=== PATIENT | male | born 1965 | race Caucasian/White ===

== ENCOUNTER 2016-12-01 04:59 | Emergency (ER) | payer MEDICARE, MEDICAID ==
[2016-12-01] MEDS ORDERED: Ondansetron 4 MG/2 ML SDV IV ONE (05:04)
[2016-12-01] MEDS ORDERED: Sodium Chloride 0.9% 1,000 ML IV ONE (05:04)
[2016-12-01] MEDS ORDERED: LORazepam 2 MG/ML Syringe IVPUSH ONE (05:06)
[2016-12-01 05:21] VITALS: BP 163/89
--- NOTE | 2016-12-01 05:37 | EDM.PDOC ---
<Steff Robbins - Last Filed: 12/01/16 07:06> ED HPI GENERAL MEDICAL PROBLEM - General Chief Complaint: Respiratory Problem Stated Complaint: IN BY [facility] Time Seen by Provider: 12/01/16 05:14 Source of Information: Reports: Patient, EMS History Limitations: Reports: No Limitations - History of Present Illness INITIAL COMMENTS - FREE TEXT/NARRATIVE: ED via [facility] with c/o SOB and in need of dialysis, states usually take 3 liters off and on Wednesday only took 1.5L off. Is scheduled for dialysis here this am at 9am. Onset: Today, Sudden (041) - Related Data Allergies Allergy/AdvReac Type Severity Reaction Status Date / Time hydralazine HCl Allergy Cannot Verified 12/01/16 05:16 [From Apresoline] Remember apricots Allergy Swelling Uncoded 12/01/16 05:16 onions Allergy Cannot Uncoded 12/01/16 05:16 Remember Home Meds: Home Meds Clopidogrel Bisulfate [Clopidogrel] 1 tab PO DAILY 12/16/15 [History] Furosemide [Furosemide] 1 tab PO DAILY 12/16/15 [History] Metolazone [Zaroxolyn] 1 tab PO DAILY 12/16/15 [History] Pantoprazole Sodium [Pantoprazole Sodium] 1 tab PO BIDAC 12/16/15 [History] Pravastatin Sodium [Pravastatin Sodium] 1 tab PO BEDTIME 12/16/15 [History] glipiZIDE [Glipizide] 1 tab PO QAM 12/16/15 [History] Acetaminophen [Tylenol Extra Strength] 500 mg PO Q6H PRN 12/01/16 [History] Aspirin [Halfprin] 81 mg PO BRK 12/01/16 [History] Benzonatate [Tessalon Perles] 100 mg PO QID PRN 12/01/16 [History] Calcium Acetate [Calcium Acetate] 2 tab PO TIDAC 12/01/16 [History] Carvedilol [Carvedilol] 25 mg PO BID 12/01/16 [History] Gabapentin [Neurontin] 100 mg PO BEDTIME 12/01/16 [History] Lactulose 20 gm PO DAILY PRN 12/01/16 [History] Parenteral Amino Acid 20% No.1 [Prosol] ASDIRECTED 12/01/16 [History] Sevelamer Carbonate [Renvela] 3 tab PO TIDAC 12/01/16 [History] amLODIPine Besylate [Amlodipine Besylate] 10 mg PO DAILY 12/01/16 [History] Past Medical History HEENT History: Reports: Impaired Vision Cardiovascular History: Reports: Hypertension Respiratory History: Reports: SOB Gastrointestinal History: Reports: GERD Genitourinary History: Reports: Dialysis, Peritoneal Musculoskeletal History: Reports: Fracture Endocrine/Metabolic History: Reports: Diabetes, Type II Oncologic (Cancer) History: Reports: Other (See Below) Other Oncologic History: stomach Social & Family History - Tobacco Use Smoking Status *Q: Unknown Ever Smoked Years of Tobacco use: 30 Packs/Tins Daily: 0.2 Used Tobacco, but Quit: No Second Hand Smoke Exposure: Yes - Caffeine Use Caffeine Use: Reports: Coffee - Alcohol Use Days Per Week of Alcohol Use: 2 - Recreational Drug Use Recreational Drug Use: No Drug Use in Last 12 Months: Yes Recreational Drug Type: Reports: Marijuana/Hashish Recreational Drug Use Frequency: Patient Refuses To Answer - Living Situation & Occupation Living situation: Reports: Single, with Family Occupation: Disabled ED ROS GENERAL - Review of Systems Review Of Systems: See Below Constitutional: Reports: No Symptoms HEENT: Reports: No Symptoms Respiratory: Reports: Shortness of Breath, Cough (dry forced) Cardiovascular: Reports: Dyspnea on Exertion. Denies: Chest Pain GI/Abdominal: Reports: No Symptoms Skin: Reports: No Symptoms Neurological: Reports: No Symptoms Psychiatric: Reports: Agitation ED EXAM, GENERAL - Physical Exam Exam: See Below Exam Limited By: Uncooperative General Appearance: Alert, Moderate Distress, Thin Eye Exam: Bilateral Eye: EOMI Ears: Normal External Exam, Normal TMs Nose: Normal Inspection Throat/Mouth: Normal Inspection. No: Normal Teeth Head: Atraumatic, Normocephalic Neck: Normal Inspection, Full Range of Motion Respiratory/Chest: Rhonchi, Prolonged Expiration Cardiovascular: Regular Rate, Rhythm, Tachycardia GI/Abdominal: Normal Bowel Sounds, Soft Back Exam: Normal Inspection Extremities: Normal Inspection, Normal Range of Motion, Pedal Edema Neurological: Alert, Oriented, Normal Cognition Psychiatric: Other (uncooperative agitated agressive) Skin Exam: Warm, Dry, Cool Course - Vital Signs Last Recorded V/S: Last Vital Signs Temp 36.6 C 12/01/16 05:16 Pulse 105 H 12/01/16 05:16 Resp 24 H 12/01/16 05:16 BP 163/89 H 12/01/16 05:16 Pulse Ox 82 L 12/01/16 05:16 - Orders/Labs/Meds Orders: Active Orders 24 hr Category Date Time Status CXR [Chest 1V Frontal] [CR] Urgent Exams 12/01/16 05:05 Taken CULTURE BLOOD [BC] Stat Lab 12/01/16 05:20 Received Labs: Laboratory Tests 12/01/16 12/01/16 12/01/16 Range/Units 05:20 05:20 05:20 WBC 19.1 H (5.0-10.0) 10^3/uL RBC 3.45 L (4.6-6.2) 10^6/uL Hgb 11.6 L (14.0-18.0) g/dL Hct 35.1 L (40.0-54.0) % MCV 101.7 H (80-100) fL MCH 33.6 (27.0-34.0) pg MCHC 33.0 (33.0-35.0) g/dL Plt Count 252 (150-450) 10^3/uL Neut % (Auto) 78.5 H (42.2-75.2) % Lymph % (Auto) 10.5 L (20.5-50.1) % [place] % (Auto) 8.8 H (2-8) % Eos % (Auto) 1.7 (1.0-3.0) % Baso % (Auto) 0.5 (0.0-1.0) % Add Manual Diff Yes Neutrophils % (Manual) 73 % Lymphocytes % (Manual) 13 % Monocytes % (Manual) 11 % Eosinophils % (Manual) 3 % PT 9.8 (9.0-12.0) SEC INR 1.0 (0.9-1.2) Sodium 137 (135-145) mmol/L Potassium 4.8 (3.6-5.0) mmol/L Chloride 94 L (101-111) mmol/L Carbon Dioxide 23.0 (21.0-31.0) mmol/L Anion Gap 24.8 BUN 42 H (7-18) mg/dL Creatinine 8.7 H (0.6-1.3) mg/dL Est Cr Clr Drug Dosing 6.91 mL/min Estimated GFR (MDRD) 7 BUN/Creatinine Ratio 4.82 Glucose 188 H (74-105) mg/dL Lactic Acid (0.5-2.2) mmol/L Calcium 9.3 (8.4-10.2) mg/dl Total Bilirubin 0.6 (0.2-1.0) mg/dL AST 16 (10-42) IU/L ALT 10 (10-60) IU/L Alkaline Phosphatase 72 (42-121) IU/L Troponin I 0.04 H* (0.00-0.02) ng/ml B-Natriuretic Peptide 2220 H (0-100) pg/ml Total Protein 7.7 (6.7-8.2) g/dl Albumin 4.2 (3.2-5.5) g/dl Globulin 3.5 Albumin/Globulin Ratio 1.20 Amylase 92 (28-100) U/L Lipase 27 (22-51) U/L Ethyl Alcohol < 5 mg/dL // Range/Units 05:20 WBC (5.0-10.0) 10^3/uL RBC (4.6-6.2) 10^6/uL Hgb (14.0-18.0) g/dL Hct (40.0-54.0) % MCV (80-100) fL MCH (27.0-34.0) pg MCHC (33.0-35.0) g/dL Plt Count (150-450) 10^3/uL Neut % (Auto) (42.2-75.2) % Lymph % (Auto) (20.5-50.1) % [place] % (Auto) (2-8) % Eos % (Auto) (1.0-3.0) % Baso % (Auto) (0.0-1.0) % Add Manual Diff Neutrophils % (Manual) % Lymphocytes % (Manual) % Monocytes % (Manual) % Eosinophils % (Manual) % PT (9.0-12.0) SEC INR (0.9-1.2) Sodium (135-145) mmol/L Potassium (3.6-5.0) mmol/L Chloride (101-111) mmol/L Carbon Dioxide (21.0-31.0) mmol/L Anion Gap BUN (7-18) mg/dL Creatinine (0.6-1.3) mg/dL Est Cr Clr Drug Dosing mL/min Estimated GFR (MDRD) BUN/Creatinine Ratio Glucose (74-105) mg/dL Lactic Acid 2.3 H (0.5-2.2) mmol/L Calcium (8.4-10.2) mg/dl Total Bilirubin (0.2-1.0) mg/dL AST (10-42) IU/L ALT (10-60) IU/L Alkaline Phosphatase (42-121) IU/L Troponin I (0.00-0.02) ng/ml B-Natriuretic Peptide (0-100) pg/ml Total Protein (6.7-8.2) g/dl Albumin (3.2-5.5) g/dl Globulin Albumin/Globulin Ratio Amylase (28-100) U/L Lipase (22-51) U/L Ethyl Alcohol mg/dL Meds: Medications Discontinued Medications Generic Name Dose Route Start Last Admin Trade Name Freq PRN Reason Stop Dose Admin Sodium Chloride 1,000 mls @ 999 mls/hr 12/01/16 05:04 Normal Saline IV 12/01/16 06:04 .BOLUS ONE Lorazepam 1 mg 12/01/16 05:06 Ativan IVPUSH 12/01/16 05:07 ONETIME ONE Ondansetron HCl 4 mg 12/01/16 05:04 Zofran IV 12/01/16 05:05 ONETIME ONE Departure - Departure Disposition: Home, Self-Care 01 Clinical Impression: Shortness of breath, Chronic kidney disease - Discharge Information Instructions: Shortness of Breath, [id number], Chronic Kidney Disease, Easy- to-Read Forms: ED Department Discharge Care Plan Goals: The patient was advised of the examination and lab results. The patient was encouraged to stay in the ED until his dialysis appointment (at 0845). The patient said that he was not going to sit around for another hour. The patient wants to have coffee, a cigarette and food. If the patient has any additional symptoms or concerns, the patient should follow-up with his primary care facility or return to the emergency department. <El Zhao - Last Filed: 12/01/16 07:52> Course - Re-Assessments/Exams Free Text/Narrative Re-Assessment/Exam: 12/01/16 07:20 Patient care was taken over at shift change. Since the patient refused IV, blood gasses and removed his oxygen during stay, the patient was discharged to go to dialysis. Departure - Departure Time of Disposition: 07:39 Condition: Poor
[2016-12-01 05:50] LABS: CHLORIDE,CL 94 mmol/L (101-111); SODIUM,NA 137 mmol/L (135-145)
== END 2016-12-01 07:55 | disposition home or self-care (01) ==
LOC: DL.ED 04:59
DX: I12.9 Hypertensive chronic kidney disease with stage 1 through stage 4 chronic kidney disease, or unspecified chronic kidney disease (principal); N18.9 Chronic kidney disease, unspecified; H54.7 Unspecified visual loss; K21.9 Gastro-esophageal reflux disease without esophagitis; E11.22 Type 2 diabetes mellitus with diabetic chronic kidney disease; Z91.018 Allergy to other foods; Z88.8 Allergy status to other drugs, medicaments and biological substances; Z79.82 Long term (current) use of aspirin; Z79.899 Other long term (current) drug therapy
CPT/HCPCS: 36415; 71010; 80053; 82150; 83605; 83690; 83880; 84484; 85025; 85610; 87040; 99285; G0480

== ENCOUNTER 2016-12-15 04:01 | Emergency (ER) | payer MEDICARE, MEDICAID ==
[2016-12-15] MEDS ORDERED: Metolazone 2.5 MG Tab PO ONE (04:53)
[2016-12-15] MEDS ORDERED: Furosemide 80 MG Tab PO ONE (04:54)
--- NOTE | 2016-12-15 06:03 | EDM.PDOC ---
<Steff Robbins El - Last Filed: 12/15/16 05:40> ED HPI GENERAL MEDICAL PROBLEM - General Chief Complaint: Respiratory Problem Stated Complaint: AMBULANCE Time Seen by Provider: 12/15/16 04:10 Source of Information: Reports: Patient, EMS History Limitations: Reports: No Limitations - History of Present Illness INITIAL COMMENTS - FREE TEXT/NARRATIVE: ED via [place] [facility] with c/o difficulty breathing, states "too much fluid" and needs dialysis. EMS reported initial sats 65% on room air. Last dialysis 3 days ago Denies consuming more fluid than is allowed. No complaints of pain. Improves with: Reports: Other (oxygen) Upper Back Pain Score (Numeric/FACES): 9 - Related Data Allergies Allergy/AdvReac Type Severity Reaction Status Date / Time hydralazine HCl Allergy Cannot Verified 12/15/16 04:10 [From Apresoline] Remember apricots Allergy Swelling Uncoded 12/15/16 04:10 onions Allergy Cannot Uncoded 12/15/16 04:10 Remember Home Meds: Home Meds Clopidogrel Bisulfate [Clopidogrel] 1 tab PO DAILY 12/16/15 [History] Furosemide [Furosemide] 1 tab PO DAILY 12/16/15 [History] Metolazone [Zaroxolyn] 1 tab PO DAILY 12/16/15 [History] Pantoprazole Sodium [Pantoprazole Sodium] 1 tab PO BIDAC 12/16/15 [History] Pravastatin Sodium [Pravastatin Sodium] 1 tab PO BEDTIME 12/16/15 [History] glipiZIDE [Glipizide] 1 tab PO QAM 12/16/15 [History] Acetaminophen [Tylenol Extra Strength] 500 mg PO Q6H PRN 12/01/16 [History] Aspirin [Halfprin] 81 mg PO BRK 12/01/16 [History] Benzonatate [Tessalon Perles] 100 mg PO QID PRN 12/01/16 [History] Calcium Acetate [Calcium Acetate] 2 tab PO TIDAC 12/01/16 [History] Carvedilol [Carvedilol] 25 mg PO BID 12/01/16 [History] Gabapentin [Neurontin] 100 mg PO BEDTIME 12/01/16 [History] Lactulose 20 gm PO DAILY PRN 12/01/16 [History] Parenteral Amino Acid 20% No.1 [Prosol] ASDIRECTED 12/01/16 [History] Sevelamer Carbonate [Renvela] 3 tab PO TIDAC 12/01/16 [History] amLODIPine Besylate [Amlodipine Besylate] 10 mg PO DAILY 12/01/16 [History] Past Medical History HEENT History: Reports: Impaired Vision Cardiovascular History: Reports: Hypertension Respiratory History: Reports: SOB Gastrointestinal History: Reports: GERD Genitourinary History: Reports: Dialysis, Peritoneal Musculoskeletal History: Reports: Fracture Endocrine/Metabolic History: Reports: Diabetes, Type II Oncologic (Cancer) History: Reports: Other (See Below) Other Oncologic History: stomach Social & Family History - Tobacco Use Smoking Status *Q: Current Every Day Smoker Years of Tobacco use: 10 Packs/Tins Daily: 0.5 Used Tobacco, but Quit: No Second Hand Smoke Exposure: Yes - Caffeine Use Caffeine Use: Reports: Coffee - Alcohol Use Days Per Week of Alcohol Use: 2 - Recreational Drug Use Recreational Drug Use: Yes Drug Use in Last 12 Months: Yes Recreational Drug Type: Reports: Marijuana/Hashish Recreational Drug Use Frequency: Patient Refuses To Answer - Living Situation & Occupation Living situation: Reports: Single, with Family Occupation: Disabled ED ROS GENERAL - Review of Systems Review Of Systems: See Below Constitutional: Reports: No Symptoms HEENT: Reports: No Symptoms Respiratory: Reports: Shortness of Breath, Cough Cardiovascular: Reports: Dyspnea on Exertion, Edema. Denies: Chest Pain GI/Abdominal: Reports: No Symptoms Musculoskeletal: Reports: No Symptoms Skin: Reports: No Symptoms Neurological: Reports: No Symptoms ED EXAM, GENERAL - Physical Exam Exam: See Below Exam Limited By: No Limitations General Appearance: Alert, Moderate Distress Ears: Normal External Exam, Normal TMs Nose: Normal Inspection Throat/Mouth: Other (poor dentation) Head: Atraumatic, Normocephalic Neck: Normal Inspection Respiratory/Chest: Decreased Breath Sounds (bilateral bases). No: Rhonchi, Wheezing Cardiovascular: Normal Peripheral Pulses, Regular Rate, Rhythm GI/Abdominal: Normal Bowel Sounds Extremities: Normal Range of Motion. No: No Pedal Edema (1-2+ bilateral.) Neurological: Alert, Oriented, Normal Cognition Psychiatric: Normal Affect Skin Exam: Warm, Dry, Intact, Normal Color, No Rash Course - Vital Signs Last Recorded V/S: Last Vital Signs Temp 37.1 C 12/15/16 08:00 Pulse 84 08/01/17 08:00 Resp 22 H 12/15/16 08:00 BP 165/89 H 12/15/16 08:00 Pulse Ox 98 12/15/16 08:00 - Orders/Labs/Meds Labs: Laboratory Tests 12/15/16 12/15/16 12/15/16 Range/Units 04:48 04:48 08:11 WBC 18.3 H (5.0-10.0) 10^3/uL RBC 3.55 L (4.6-6.2) 10^6/uL Hgb 11.6 L (14.0-18.0) g/dL Hct 36.1 L (40.0-54.0) % MCV 101.7 H (80-100) fL MCH 32.7 (27.0-34.0) pg MCHC 32.1 L (33.0-35.0) g/dL Plt Count 257 (150-450) 10^3/uL Neut % (Auto) 80.4 H (42.2-75.2) % Lymph % (Auto) 9.2 L (20.5-50.1) % [place] % (Auto) 8.4 H (2-8) % Eos % (Auto) 1.5 (1.0-3.0) % Baso % (Auto) 0.5 (0.0-1.0) % Add Manual Diff Yes Neutrophils % (Manual) 82 % Lymphocytes % (Manual) 12 % Monocytes % (Manual) 6 % Sodium 140 (135-145) mmol/L Potassium 4.5 (3.6-5.0) mmol/L Chloride 95 L (101-111) mmol/L Carbon Dioxide 25.0 (21.0-31.0) mmol/L Anion Gap 24.5 BUN 38 H (7-18) mg/dL Creatinine 9.1 H (0.6-1.3) mg/dL Est Cr Clr Drug Dosing 6.16 mL/min Estimated GFR (MDRD) 6 BUN/Creatinine Ratio 4.17 Glucose 175 H (74-105) mg/dL POC Glucose 132 H (70-105) mg/dl Calcium 9.4 (8.4-10.2) mg/dl Total Bilirubin 0.8 (0.2-1.0) mg/dL AST 17 (10-42) IU/L ALT 10 (10-60) IU/L Alkaline Phosphatase 66 (42-121) IU/L B-Natriuretic Peptide 3770 H (0-100) pg/ml Total Protein 7.9 (6.7-8.2) g/dl Albumin 4.2 (3.2-5.5) g/dl Globulin 3.7 Albumin/Globulin Ratio 1.14 Meds: Medications Discontinued Medications Generic Name Dose Route Start Last Admin Trade Name Audrey PRN Reason Stop Dose Admin Furosemide 80 mg 12/15/16 04:54 12/15/16 05:10 Lasix PO 12/15/16 04:55 80 mg ONETIME ONE Administration Metolazone 5 mg 12/15/16 04:53 12/15/16 05:10 Zaroxolyn PO 12/15/16 04:54 5 mg ONETIME ONE Administration - Radiology Interpretation Free Text/Narrative:: CXR negative, - Re-Assessments/Exams Free Text/Narrative Re-Assessment/Exam: 12/15/16 06:48 Sats improved, Patient poor compliance with keeping oxygen on . Awaiting dialysis. Appointment for 9 am today. Departure - Departure Disposition: Home, Self-Care 01 Clinical Impression: ESRD (end stage renal disease) on dialysis, Shortness of breath Congestive heart failure Qualifiers: Congestive heart failure type: unspecified congestive heart failure type Congestive heart failure chronicity: chronic Qualified Code(s): I50.9 - Heart failure, unspecified Chronic pain Qualifiers: Chronic pain type: chronic pain syndrome Qualified Code(s): G89.4 - Chronic pain syndrome - Discharge Information Instructions: Heart Failure, [id number], Chronic Pain Forms: ED Department Discharge Additional Instructions: Go to dialysis at 9:00AM as scheduled. Follow up with your doctor for medication and pain management. <Manpreet Cao - Last Filed: 12/15/16 08:42> ED HPI GENERAL MEDICAL PROBLEM - General Source of Information: Reports: Old Records, Provider (Steff PARK), RN, RN Notes Reviewed - History of Present Illness INITIAL COMMENTS - FREE TEXT/NARRATIVE: Pt on extended stay ER by Steff PARK at 0700HR shift change with fluid overload and SOB with dialysis pending at 0900HRS this morning. Steff allowed the pt to stay on extended stay ER until his scheduled dialysis as the pt's Hx indicates that he is not reliable to go home at this hour and return for dialysis, and he needs the dialysis to remove excess fluid and relieve his Sx's. *Nursing staff reports that the pt has been very rude and verbally abusive to staff and to his adolescent son during this encounter. Pt has demanded "pain medication" and is angry that he has not been given pain medicine. Pt's pain complaint has been that of chronic back pain, while his ER presenting complaint was shortness of breath with low oxygen saturations. I agree with the PA's decision to not treat the pt with opiate drugs when his oxygen saturations have already been low. Onset: Today ED EXAM, GENERAL - Physical Exam Exam Limited By: Other (angry, verbally abusive to staff) Departure - Departure Time of Disposition: 08:50 Condition: Poor
[2016-12-15 08:26] VITALS: BP 165/89
== END 2016-12-15 08:45 | disposition home or self-care (01) ==
LOC: DL.ED 04:01
DX: I13.2 Hypertensive heart and chronic kidney disease with heart failure and with stage 5 chronic kidney disease, or end stage renal disease (principal); N18.6 End stage renal disease; I50.9 Heart failure, unspecified; G89.4 Chronic pain syndrome; E11.22 Type 2 diabetes mellitus with diabetic chronic kidney disease; F17.210 Nicotine dependence, cigarettes, uncomplicated; K21.9 Gastro-esophageal reflux disease without esophagitis; Z99.2 Dependence on renal dialysis; Z88.8 Allergy status to other drugs, medicaments and biological substances; Z91.018 Allergy to other foods; Z79.02 Long term (current) use of antithrombotics/antiplatelets; Z79.84 Long term (current) use of oral hypoglycemic drugs; Z79.82 Long term (current) use of aspirin; Z79.899 Other long term (current) drug therapy
CPT/HCPCS: 36415; 71010; 80053; 82962; 83880; 85025; 99285; A9270; 99282

== ENCOUNTER 2016-12-22 07:21 | Emergency (ER) | payer MEDICARE, MEDICAID ==
[2016-12-22] MEDS ORDERED: Sodium Chloride 0.9% 10 ML Syringe FLUSH PRN (07:32)
--- NOTE | 2016-12-22 07:32 | EDM.PDOC ---
ED HPI GENERAL MEDICAL PROBLEM - General Chief Complaint: Cardiovascular Problem Stated Complaint: BY AMBULANCE Time Seen by Provider: 12/22/16 07:32 Source of Information: Reports: Patient, EMS, Family, Old Records, RN, RN Notes Reviewed History Limitations: Reports: No Limitations - History of Present Illness INITIAL COMMENTS - FREE TEXT/NARRATIVE: Arrives by ambulance with c/o onset of productive cough last night with yellow- brownish sputum with blood streaks. Pt reports feeling "fluid overloaded" and also reports chest pressure. He states he has been soaked with sweat several times, but doesn't know if he had a fever or not. Onset Date: 12/21/16 Duration: Constant, Getting Worse Location: Reports: Chest Quality: Reports: Pressure Severity: Severe Improves with: Reports: None Worsens with: Reports: None Associated Symptoms: Reports: No Other Symptoms - Related Data Allergies Allergy/AdvReac Type Severity Reaction Status Date / Time hydralazine HCl Allergy Cannot Verified 12/15/16 04:10 [From Apresoline] Remember apricots Allergy Swelling Uncoded 12/15/16 04:10 onions Allergy Cannot Uncoded 12/15/16 04:10 Remember Home Meds: Home Meds Clopidogrel Bisulfate [Clopidogrel] 1 tab PO DAILY 12/16/15 [History] Furosemide [Furosemide] 1 tab PO DAILY 12/16/15 [History] Metolazone [Zaroxolyn] 1 tab PO DAILY 12/16/15 [History] Pantoprazole Sodium [Pantoprazole Sodium] 1 tab PO BIDAC 12/16/15 [History] Pravastatin Sodium [Pravastatin Sodium] 1 tab PO BEDTIME 12/16/15 [History] glipiZIDE [Glipizide] 1 tab PO QAM 12/16/15 [History] Acetaminophen [Tylenol Extra Strength] 500 mg PO Q6H PRN 12/01/16 [History] Aspirin [Halfprin] 81 mg PO BRK 12/01/16 [History] Benzonatate [Tessalon Perles] 100 mg PO QID PRN 12/01/16 [History] Calcium Acetate [Calcium Acetate] 2 tab PO TIDAC 12/01/16 [History] Carvedilol [Carvedilol] 25 mg PO BID 12/01/16 [History] Gabapentin [Neurontin] 100 mg PO BEDTIME 12/01/16 [History] Lactulose 20 gm PO DAILY PRN 12/01/16 [History] Parenteral Amino Acid 20% No.1 [Prosol] ASDIRECTED 12/01/16 [History] Sevelamer Carbonate [Renvela] 3 tab PO TIDAC 12/01/16 [History] amLODIPine Besylate [Amlodipine Besylate] 10 mg PO DAILY 12/01/16 [History] Past Medical History HEENT History: Reports: Impaired Vision Cardiovascular History: Reports: Hypertension Respiratory History: Reports: SOB Gastrointestinal History: Reports: GERD Genitourinary History: Reports: Dialysis, Peritoneal Musculoskeletal History: Reports: Fracture Endocrine/Metabolic History: Reports: Diabetes, Type II Oncologic (Cancer) History: Reports: Other (See Below) Other Oncologic History: stomach Social & Family History - Family History Family Medical History: Noncontributory - Tobacco Use Smoking Status *Q: Current Every Day Smoker Years of Tobacco use: 10 Packs/Tins Daily: 0.5 Used Tobacco, but Quit: No Second Hand Smoke Exposure: Yes - Caffeine Use Caffeine Use: Reports: Coffee - Alcohol Use Days Per Week of Alcohol Use: 2 - Recreational Drug Use Recreational Drug Use: Yes Drug Use in Last 12 Months: Yes Recreational Drug Type: Reports: Marijuana/Hashish Recreational Drug Use Frequency: Patient Refuses To Answer - Living Situation & Occupation Living situation: Reports: Single, with Family Occupation: Disabled ED ROS GENERAL - Review of Systems Review Of Systems: ROS reveals no pertinent complaints other than HPI. ED EXAM, GENERAL - Physical Exam Exam: See Below Exam Limited By: No Limitations General Appearance: Alert, Anxious, Mild Distress, Thin Eye Exam: Bilateral Eye: Normal Inspection Ears: Hearing Grossly Normal Nose: No Blood, Nasal Drainage (mild, clear) Throat/Mouth: Normal Oropharynx, Normal Voice, No Airway Compromise Head: Atraumatic, Normocephalic Neck: Normal Inspection, Supple, Non-Tender, Full Range of Motion. No: Lymphadenopathy (L), Lymphadenopathy (R) Respiratory/Chest: Decreased Breath Sounds, Crackles, Rales, Rhonchi, Wheezing Cardiovascular: Regular Rate, Rhythm, Tachycardia GI/Abdominal: Normal Bowel Sounds, Soft, Non-Tender, No Distention Back Exam: Normal Inspection Extremities: Normal Range of Motion, Non-Tender, Pedal Edema Neurological: Alert, Oriented, CN II-XII Intact, Normal Cognition, No Motor/ Sensory Deficits Psychiatric: Anxious Skin Exam: Diaphoretic EKG INTERPRETATION EKG Date: 12/22/16 Time: 07:58 Rhythm: Other (Sinus tach) Rate (Beats/Min): 112 [place]: Normal P-Wave: Present QRS: Other (LVH with IVCD) ST-T: Normal QT: Normal Comparison: No Change Course - Vital Signs Last Recorded V/S: Last Vital Signs Temp 36.6 C 12/22/16 09:17 Pulse 91 12/22/16 09:17 Resp 24 H 12/22/16 09:17 BP 158/103 H 12/22/16 09:17 Pulse Ox 92 L 12/22/16 09:17 - Orders/Labs/Meds Orders: Active Orders 24 hr Category Date Time Status EKG 12 Lead [EKG Documentation Completion] [] STAT Care 12/22/16 07:33 Active Peripheral IV Care [RC] . DIRECTED Care 12/22/16 07:33 Active RT Aerosol Therapy [RC] ASDIRECTED Care 12/22/16 07:34 Active CULTURE BLOOD [BC] Stat Lab 12/22/16 08:25 Ordered CULTURE BLOOD [BC] Stat Lab 12/22/16 08:25 Ordered CULTURE SPUTUM + SMEAR [RM] Stat Lab 12/22/16 08:30 Received Sodium Chloride 0.9% [Saline Flush] Med 12/22/16 07:32 Active 10 ml FLUSH ASDIRECTED PRN Blood Culture x2 Reflex Set [OM.PC] Stat Oth 12/22/16 08:25 Ordered Peripheral IV Insertion Adult [OM.PC] Stat Oth 12/22/16 07:33 Ordered Medication Orders Sodium Chloride (Saline Flush) 10 ml FLUSH ASDIRECTED PRN PRN Reason: Keep Vein Open Last Admin: 12/22/16 07:59 Dose: 10 ml Labs: Laboratory Tests 12/22/16 12/22/16 12/22/16 Range/Units 07:50 07:50 07:50 WBC 18.2 H (5.0-10.0) 10^3/uL RBC 3.57 L (4.6-6.2) 10^6/uL Hgb 11.5 L (14.0-18.0) g/dL Hct 37.1 L (40.0-54.0) % MCV 103.9 H (80-100) fL MCH 32.2 (27.0-34.0) pg MCHC 31.0 L (33.0-35.0) g/dL Plt Count 286 (150-450) 10^3/uL Neut % (Auto) 70.5 (42.2-75.2) % Lymph % (Auto) 15.7 L (20.5-50.1) % [place] % (Auto) 11.7 H (2-8) % Eos % (Auto) 1.7 (1.0-3.0) % Baso % (Auto) 0.4 (0.0-1.0) % Add Manual Diff Yes Neutrophils % (Manual) 70 % Band Neutrophils % 3 % Lymphocytes % (Manual) 15 % Monocytes % (Manual) 11 % Eosinophils % (Manual) 1 % Anisocytosis 1+ slight PT 9.9 (9.0-12.0) SEC INR 1.0 (0.9-1.2) APTT 24.8 (22.0-34.0) SEC Sodium 141 (135-145) mmol/L Potassium 4.4 (3.6-5.0) mmol/L Chloride 98 L (101-111) mmol/L Carbon Dioxide 23.0 (21.0-31.0) mmol/L Anion Gap 24.4 BUN 40 H (7-18) mg/dL Creatinine 9.3 H (0.6-1.3) mg/dL Est Cr Clr Drug Dosing 5.91 mL/min Estimated GFR (MDRD) 6 BUN/Creatinine Ratio 4.30 Glucose 193 H (74-105) mg/dL Lactic Acid (0.5-2.2) mmol/L Calcium 8.8 (8.4-10.2) mg/dl Total Bilirubin 0.6 (0.2-1.0) mg/dL AST 18 (10-42) IU/L ALT 11 (10-60) IU/L Alkaline Phosphatase 80 (42-121) IU/L Creatine Kinase (26-174) IU/L Creatine Kinase Index (0-2.4) % CK-MB (CK-2) (0.4-4.7) ng/mL Troponin I 0.05 H* (0.00-0.02) ng/ml B-Natriuretic Peptide 2340 H (0-100) pg/ml Total Protein 7.6 (6.7-8.2) g/dl Albumin 3.9 (3.2-5.5) g/dl Globulin 3.7 Albumin/Globulin Ratio 1.05 12/22/16 12/22/16 Range/Units 07:50 07:50 WBC (5.0-10.0) 10^3/uL RBC (4.6-6.2) 10^6/uL Hgb (14.0-18.0) g/dL Hct (40.0-54.0) % MCV (80-100) fL MCH (27.0-34.0) pg MCHC (33.0-35.0) g/dL Plt Count (150-450) 10^3/uL Neut % (Auto) (42.2-75.2) % Lymph % (Auto) (20.5-50.1) % [place] % (Auto) (2-8) % Eos % (Auto) (1.0-3.0) % Baso % (Auto) (0.0-1.0) % Add Manual Diff Neutrophils % (Manual) % Band Neutrophils % % Lymphocytes % (Manual) % Monocytes % (Manual) % Eosinophils % (Manual) % Anisocytosis PT (9.0-12.0) SEC INR (0.9-1.2) APTT (22.0-34.0) SEC Sodium (135-145) mmol/L Potassium (3.6-5.0) mmol/L Chloride (101-111) mmol/L Carbon Dioxide (21.0-31.0) mmol/L Anion Gap BUN (7-18) mg/dL Creatinine (0.6-1.3) mg/dL Est Cr Clr Drug Dosing mL/min Estimated GFR (MDRD) BUN/Creatinine Ratio Glucose (74-105) mg/dL Lactic Acid 2.5 H (0.5-2.2) mmol/L Calcium (8.4-10.2) mg/dl Total Bilirubin (0.2-1.0) mg/dL AST (10-42) IU/L ALT (10-60) IU/L Alkaline Phosphatase (42-121) IU/L Creatine Kinase 72 (26-174) IU/L Creatine Kinase Index 8.5 H (0-2.4) % CK-MB (CK-2) 6.10 H (0.4-4.7) ng/mL Troponin I (0.00-0.02) ng/ml B-Natriuretic Peptide (0-100) pg/ml Total Protein (6.7-8.2) g/dl Albumin (3.2-5.5) g/dl Globulin Albumin/Globulin Ratio Meds: Medications Generic Name Dose Route Start Last Admin Trade Name Freq PRN Reason Stop Dose Admin Sodium Chloride 10 ml 12/22/16 07:32 12/22/16 07:59 Saline Flush FLUSH 10 ml ASDIRECTED PRN Administration Keep Vein Open Discontinued Medications Generic Name Dose Route Start Last Admin Trade Name Freq PRN Reason Stop Dose Admin Albuterol 2.5 mg 12/22/16 07:34 12/22/16 08:04 Proventil Neb Soln NEB 12/22/16 07:35 2.5 mg ONETIME ONE Administration Aspirin 324 mg 12/22/16 07:44 12/22/16 07:56 Aspirin PO 12/22/16 07:45 324 mg ONETIME ONE Administration Furosemide 40 mg 12/22/16 07:45 12/22/16 08:02 Lasix IVPUSH 12/22/16 07:46 40 mg NOW ONE Administration Piperacillin Sod/Tazobactam 100 mls @ 200 mls/hr 12/22/16 08:25 12/22/16 08: 43 Sod 3.375 gm/ Sodium Chloride IV 12/22/16 08:54 200 mls/hr ONETIME ONE Administration Nitroglycerin 1 gm 12/22/16 07:44 12/22/16 07:59 Nitro-Bid 2% TOP 12/22/16 07:45 1 gm ONETIME ONE Administration - Radiology Interpretation Free Text/Narrative:: CXR: increased pulm. vasc. congestion, with RLL infiltrate, see Rad. report. Departure - Departure Time of Disposition: 09:41 Disposition: Home, Self-Care 01 Condition: Serious Clinical Impression: ESRD (end stage renal disease) on dialysis, Shortness of breath Congestive heart failure Qualifiers: Congestive heart failure type: unspecified congestive heart failure type Congestive heart failure chronicity: chronic Qualified Code(s): I50.9 - Heart failure, unspecified Pneumonia Qualifiers: Pneumonia type: due to unspecified organism Laterality: right Lung location: lower lobe of lung Qualified Code(s): J18.1 - Lobar pneumonia, unspecified organism Forms: ED Department Discharge, Interfacility Transfer EMTALA - My Orders Last 24 Hours: My Active Orders 12/22/16 07:32 Sodium Chloride 0.9% [Saline Flush] 10 ml FLUSH ASDIRECTED PRN 12/22/16 07:33 EKG 12 Lead [EKG Documentation Completion] [RC] STAT Peripheral IV Care [RC] . DIRECTED Peripheral IV Insertion Adult [OM.PC] Stat 12/22/16 07:34 RT Aerosol Therapy [RC] ASDIRECTED 12/22/16 08:25 CULTURE BLOOD [BC] Stat CULTURE BLOOD [BC] Stat Blood Culture x2 Reflex Set [OM.PC] Stat 12/22/16 08:30 CULTURE SPUTUM + SMEAR [RM] Stat - Assessment/Plan Last 24 Hours: My Active Orders 12/22/16 07:32 Sodium Chloride 0.9% [Saline Flush] 10 ml FLUSH ASDIRECTED PRN 12/22/16 07:33 EKG 12 Lead [EKG Documentation Completion] [RC] STAT Peripheral IV Care [RC] . DIRECTED Peripheral IV Insertion Adult [OM.PC] Stat 12/22/16 07:34 RT Aerosol Therapy [RC] ASDIRECTED 12/22/16 08:25 CULTURE BLOOD [BC] Stat CULTURE BLOOD [BC] Stat Blood Culture x2 Reflex Set [OM.PC] Stat 12/22/16 08:30 CULTURE SPUTUM + SMEAR [RM] Stat
[2016-12-22] MEDS ORDERED: Albuterol 0.083% 2.5 MG/3 ML Neb Soln NEB ONE (07:34)
[2016-12-22] MEDS ORDERED: Aspirin 81 MG Tab.Chew PO ONE (07:44)
[2016-12-22] MEDS ORDERED: Nitroglycerin 2% Oint 1 GM UD Packet TOP ONE (07:44)
[2016-12-22] MEDS ORDERED: Furosemide 40 MG/4 ML VIAL IVPUSH ONE (07:45)
[2016-12-22] MEDS ORDERED: Piperacillin/Tazobactam 3.375 GM in Sodium Chloride 0.9% 100 ML IV ONE (08:25)
--- NOTE | 2016-12-22 08:46 | CR ---
Clinical history: 51-year-old dialysis patient with chest pain. Interpretation: Chronic pulmonary venous congestion (cephalization) and small dependent new subpulmo audra pleural effusions. Dense new consolidation with air bronchograms right middle and lower lobe since 15 December 2016 exam m ay represent atypical pulmonary edema however underlying pneumonic consolidation probable. Clinical? No lung mass or other focal lobar infiltrates. CONCLUSION: Abnormal. (See above)
[2016-12-22 09:07] VITALS: BP 158/103
--- NOTE | 2016-12-23 10:39 | EKG ---
12/22/2016- SAMANTHA STEVENS - EKG per my reading shows sinus rhythm with tachycardia at a rate of [address] changes and LVH. [facility] /[id number]
== END 2016-12-22 09:45 ==
LOC: DL.ED 07:21
DX: I13.2 Hypertensive heart and chronic kidney disease with heart failure and with stage 5 chronic kidney disease, or end stage renal disease (principal); I50.9 Heart failure, unspecified; N18.6 End stage renal disease; J18.9 Pneumonia, unspecified organism; H54.7 Unspecified visual loss; K21.9 Gastro-esophageal reflux disease without esophagitis; E11.22 Type 2 diabetes mellitus with diabetic chronic kidney disease; Z91.018 Allergy to other foods; Z79.899 Other long term (current) drug therapy; Z79.82 Long term (current) use of aspirin
CPT/HCPCS: 36415; 71010; 80053; 82550; 82553; 83605; 83880; 84484; 85025; 85610; 85730; 87040; 87070; 87205; 93005; 93010; 94640; 96365; 96375; 99285; A9270; J1940; J2543; J7050; J7620; 99284

== ENCOUNTER 2017-01-05 08:39 | Emergency (ER) | payer MEDICARE, MEDICAID ==
[2017-01-05] MEDS ORDERED: Albuterol/Ipratropium 3.0-0.5 MG/3 ML Neb Soln NEB ONE (08:42)
--- NOTE | 2017-01-05 08:54 | EDM.PDOC ---
ED HPI GENERAL MEDICAL PROBLEM - General Stated Complaint: IN BY [facility] Time Seen by Provider: 01/05/17 08:47 Source of Information: Reports: Patient, EMS History Limitations: Reports: No Limitations - History of Present Illness INITIAL COMMENTS - FREE TEXT/NARRATIVE: This 51 yo male patient reports to the ED with increased shortness of breath. The patient reports he has been coughing up blood and had nausea/vomiting. EMS placed the patient on CPAP while enroute to the ED from [place]. The patient is supposed to be in dialysis at 0900 this morning. Onset: Gradual Duration: Day(s):, Constant, Getting Worse Location: Reports: Chest Quality: Reports: Pressure, Sharp Severity: Severe Improves with: Reports: Other (CPAP (started by [facility])) Worsens with: Reports: None Associated Symptoms: Reports: cough w sputum, Nausea/Vomiting, Shortness of Breath Treatments MANAGEMENT TRAINEE: Reports: Other Medication(s) Mid-Sternal Chest Pain Score (Numeric/FACES): 4 - Related Data Allergies Allergy/AdvReac Type Severity Reaction Status Date / Time hydralazine HCl Allergy Cannot Verified 12/15/16 04:10 [From Apresoline] Remember apricots Allergy Swelling Uncoded 12/15/16 04:10 onions Allergy Cannot Uncoded 12/15/16 04:10 Remember Home Meds: Home Meds Clopidogrel Bisulfate [Clopidogrel] 1 tab PO DAILY 12/16/15 [History] Furosemide [Furosemide] 1 tab PO DAILY 12/16/15 [History] Metolazone [Zaroxolyn] 1 tab PO DAILY 12/16/15 [History] Pantoprazole Sodium [Pantoprazole Sodium] 1 tab PO BIDAC 12/16/15 [History] Pravastatin Sodium [Pravastatin Sodium] 1 tab PO BEDTIME 12/16/15 [History] glipiZIDE [Glipizide] 1 tab PO QAM 12/16/15 [History] Acetaminophen [Tylenol Extra Strength] 500 mg PO Q6H PRN 12/01/16 [History] Aspirin [Halfprin] 81 mg PO BRK 12/01/16 [History] Benzonatate [Tessalon Perles] 100 mg PO QID PRN 12/01/16 [History] Calcium Acetate [Calcium Acetate] 2 tab PO TIDAC 12/01/16 [History] Carvedilol [Carvedilol] 25 mg PO BID 12/01/16 [History] Gabapentin [Neurontin] 100 mg PO BEDTIME 12/01/16 [History] Lactulose 20 gm PO DAILY PRN 12/01/16 [History] Parenteral Amino Acid 20% No.1 [Prosol] ASDIRECTED 12/01/16 [History] Sevelamer Carbonate [Renvela] 3 tab PO TIDAC 12/01/16 [History] amLODIPine Besylate [Amlodipine Besylate] 10 mg PO DAILY 12/01/16 [History] Past Medical History HEENT History: Reports: Impaired Vision Cardiovascular History: Reports: Hypertension Respiratory History: Reports: SOB Gastrointestinal History: Reports: GERD Genitourinary History: Reports: Dialysis, Peritoneal Musculoskeletal History: Reports: Fracture Endocrine/Metabolic History: Reports: Diabetes, Type II Oncologic (Cancer) History: Reports: Other (See Below) Other Oncologic History: stomach Social & Family History - Family History Family Medical History: Noncontributory - Tobacco Use Smoking Status *Q: Current Every Day Smoker Years of Tobacco use: 10 Packs/Tins Daily: 0.5 Used Tobacco, but Quit: No Second Hand Smoke Exposure: Yes - Caffeine Use Caffeine Use: Reports: Coffee - Alcohol Use Days Per Week of Alcohol Use: 2 - Recreational Drug Use Recreational Drug Use: Yes Drug Use in Last 12 Months: Yes Recreational Drug Type: Reports: Marijuana/Hashish Recreational Drug Use Frequency: Patient Refuses To Answer - Living Situation & Occupation Living situation: Reports: Single, with Family Occupation: Disabled ED ROS GENERAL - Review of Systems Review Of Systems: ROS reveals no pertinent complaints other than HPI. ED EXAM, GENERAL - Physical Exam Exam: See Below Exam Limited By: No Limitations General Appearance: Alert, WD/WN, Anxious, Moderate Distress, Thin Eye Exam: Bilateral Eye: EOMI, Normal Inspection, PERRL Ears: Normal External Exam, Normal Canal, Hearing Grossly Normal, Normal TMs Nose: Normal Inspection, Normal Mucosa, No Blood Throat/Mouth: Normal Inspection, Normal Lips, Normal Teeth, Normal Gums, Normal Oropharynx, Normal Voice, No Airway Compromise Head: Atraumatic, Normocephalic Neck: Normal Inspection, Supple, Non-Tender, Full Range of Motion Respiratory/Chest: Respiratory Distress, Decreased Breath Sounds, Rhonchi, Wheezing Cardiovascular: Normal Peripheral Pulses, Regular Rate, Rhythm, No Edema, No Gallop, No JVD, No Murmur, No Rub GI/Abdominal: Normal Bowel Sounds, Soft, Non-Tender, No Organomegaly, No Distention, No Abnormal Bruit, No Mass (Male) Exam: Deferred Rectal (Males) Exam: Deferred Back Exam: Normal Inspection, Full Range of Motion, NT Extremities: Normal Inspection, Normal Range of Motion, Non-Tender, Normal Capillary Refill, No Pedal Edema Neurological: Alert, Oriented, CN II-XII Intact, Normal Cognition, Normal Gait, Normal Reflexes, No Motor/Sensory Deficits Psychiatric: Normal Affect, Normal Mood Skin Exam: Warm, Dry, Intact, Normal Color, No Rash Lymphatic: No Adenopathy Course - Vital Signs Last Recorded V/S: Last Vital Signs Temp 36.3 C 01/05/17 08:40 Pulse 100 01/05/17 09:05 Resp 30 H 01/05/17 08:40 BP 176/108 H 01/05/17 08:40 Pulse Ox 100 01/05/17 08:42 - Orders/Labs/Meds Orders: Active Orders 24 hr Category Date Time Status EKG Documentation Completion [RC] URGENT Care 01/05/17 08:46 Active RT Aerosol Therapy [RC] ASDIRECTED Care 01/05/17 08:42 Active CULTURE BLOOD [BC] Stat Lab 01/05/17 08:57 Received CULTURE BLOOD [BC] Stat Lab 01/05/17 09:06 Results DRUG SCREEN URINE BIORAD [URCHEM] Stat Lab 01/05/17 08:44 Uncollected UA W/MICROSCOPIC [URIN] Stat Lab 01/05/17 08:43 Uncollected Vancomycin 500 mg Med 01/05/17 10:24 Ordered Sodium Chloride 0.9% [Normal Saline] 100 ml IV ONETIME Blood Culture x2 Reflex Set [OM.PC] Stat Oth 01/05/17 08:43 Ordered Medication Orders Vancomycin HCl 500 mg/ Sodium (Chloride) 100 mls @ 100 mls/hr IV ONETIME ONE Stop: 01/05/17 11:23 Labs: Laboratory Tests 01/05/17 01/05/17 01/05/17 Range/Units 08:57 09:06 09:06 WBC 17.2 H (5.0-10.0) 10^3/uL RBC 3.39 L (4.6-6.2) 10^6/uL Hgb 10.7 L (14.0-18.0) g/dL Hct 33.9 L (40.0-54.0) % MCV 100.0 (80-100) fL MCH 31.6 (27.0-34.0) pg MCHC 31.6 L (33.0-35.0) g/dL Plt Count 240 (150-450) 10^3/uL Neut % (Auto) 83.1 H (42.2-75.2) % Lymph % (Auto) 7.6 L (20.5-50.1) % [place] % (Auto) 7.6 (2-8) % Eos % (Auto) 1.1 (1.0-3.0) % Baso % (Auto) 0.6 (0.0-1.0) % Add Manual Diff Yes Neutrophils % (Manual) 83 % Band Neutrophils % 2 % Lymphocytes % (Manual) 11 % Monocytes % (Manual) 3 % Eosinophils % (Manual) 1 % Sodium 136 (135-145) mmol/L Potassium 5.7 H (3.6-5.0) mmol/L Chloride 94 L (101-111) mmol/L Carbon Dioxide 22.0 (21.0-31.0) mmol/L Anion Gap 25.7 BUN 58 H (7-18) mg/dL Creatinine 9.0 H (0.6-1.3) mg/dL Est Cr Clr Drug Dosing TNP Estimated GFR (MDRD) 6 BUN/Creatinine Ratio 6.44 Glucose 232 H (74-105) mg/dL Lactic Acid 2.3 H (0.5-2.2) mmol/L Calcium 9.1 (8.4-10.2) mg/dl Magnesium 2.3 (1.8-2.5) mg/dL Total Bilirubin 0.8 (0.2-1.0) mg/dL AST 31 (10-42) IU/L ALT 16 (10-60) IU/L Alkaline Phosphatase 83 (42-121) IU/L Troponin I 0.04 H* (0.00-0.02) ng/ml B-Natriuretic Peptide 2400 H (0-100) pg/ml Total Protein 7.0 (6.7-8.2) g/dl Albumin 3.7 (3.2-5.5) g/dl Globulin 3.3 Albumin/Globulin Ratio 1.12 Ethyl Alcohol < 5 mg/dL Meds: Medications Generic Name Dose Route Start Last Admin Trade Name Freq PRN Reason Stop Dose Admin Vancomycin HCl 500 mg/ Sodium 100 mls @ 100 mls/hr 01/05/17 10:24 Chloride IV 01/05/17 11:23 ONETIME ONE Discontinued Medications Generic Name Dose Route Start Last Admin Trade Name Freq PRN Reason Stop Dose Admin Albuterol/Ipratropium 3 ml 01/05/17 08:42 01/05/17 09:02 Duoneb 3.0-0.5 Mg/3 Ml NEB 01/05/17 08:43 3 ml ONETIME ONE Administration Departure - Departure Time of Disposition: 10:28 Disposition: DC/[facility]fer to [facility] 02 Condition: Fair Clinical Impression: Dialysis patient Pneumonia Qualifiers: Pneumonia type: due to unspecified organism Laterality: right Lung location: lower lobe of lung Qualified Code(s): J18.1 - Lobar pneumonia, unspecified organism Kidney failure Qualifiers: Renal failure chronicity: chronic Chronic kidney disease stage: unspecified stage Qualified Code(s): N18.9 - Chronic kidney disease, unspecified - Discharge Information Forms: Interfacility Transfer EMTALA Care Plan Goals: Discussed the history, examination, and lab results with Dr. Kramer (Hospitalist with [facility] in [place]). Dr. Kramer accepted the patient for continued evaluation and management. The patient will be transferred by [facility]. - My Orders Last 24 Hours: My Active Orders 01/05/17 08:42 RT Aerosol Therapy [RC] ASDIRECTED 01/05/17 08:43 UA W/MICROSCOPIC [URIN] Stat Blood Culture x2 Reflex Set [OM.PC] Stat 01/05/17 08:44 DRUG SCREEN URINE BIORAD [URCHEM] Stat 01/05/17 08:46 EKG Documentation Completion [RC] URGENT 01/05/17 08:57 CULTURE BLOOD [BC] Stat 01/05/17 09:06 CULTURE BLOOD [BC] Stat 01/05/17 10:24 Vancomycin 500 mg Sodium Chloride 0.9% [Normal Saline] 100 ml IV ONETIME - Assessment/Plan Last 24 Hours: My Active Orders 01/05/17 08:42 RT Aerosol Therapy [RC] ASDIRECTED 01/05/17 08:43 UA W/MICROSCOPIC [URIN] Stat Blood Culture x2 Reflex Set [OM.PC] Stat 01/05/17 08:44 DRUG SCREEN URINE BIORAD [URCHEM] Stat 01/05/17 08:46 EKG Documentation Completion [RC] URGENT 01/05/17 08:57 CULTURE BLOOD [BC] Stat 01/05/17 09:06 CULTURE BLOOD [BC] Stat 01/05/17 10:24 Vancomycin 500 mg Sodium Chloride 0.9% [Normal Saline] 100 ml IV ONETIME
[2017-01-05 09:16] VITALS: BP 176/108
[2017-01-05 09:35] LABS: CHLORIDE,CL 94 mmol/L (101-111); SODIUM,NA 136 mmol/L (135-145)
--- NOTE | 2017-02-25 10:32 | EKG ---
01/05/2017- SAMANTHA STEVENS - EKG done on a 51-year-old male showing sinus rhythm, heart rate of 96 beats per minute, left axis deviation. Left anterior fascicular block noted. Prolonged QT interval. T-wave inversions noted on lateral leads. [facility] /[id number]
== END 2017-01-05 11:44 | disposition left against medical advice (07) ==
LOC: DL.ED 08:39
DX: J18.9 Pneumonia, unspecified organism (principal); I12.9 Hypertensive chronic kidney disease with stage 1 through stage 4 chronic kidney disease, or unspecified chronic kidney disease; N18.9 Chronic kidney disease, unspecified; E11.22 Type 2 diabetes mellitus with diabetic chronic kidney disease; K21.9 Gastro-esophageal reflux disease without esophagitis; F17.210 Nicotine dependence, cigarettes, uncomplicated; Z88.8 Allergy status to other drugs, medicaments and biological substances; Z91.018 Allergy to other foods; Z79.899 Other long term (current) drug therapy
CPT/HCPCS: 36415; 80053; 83605; 83735; 83880; 84484; 85025; 87040; 93005; 93010; 94640; 96365; 99285; G0480; J3370; J7050

== ENCOUNTER 2017-01-11 21:21 | Emergency (ER) | payer MEDICARE, MEDICAID ==
[2017-01-11] MEDS ORDERED: Midazolam 1 MG/ML 2 ML SDV IV ONE (21:22)
[2017-01-11] MEDS ORDERED: Furosemide 40 MG/4 ML VIAL IV ONE (21:22)
[2017-01-11] MEDS ORDERED: Propofol 200 MG/20 ML SDV IV ONE (21:22)
[2017-01-11] MEDS ORDERED: Furosemide 40 MG/4 ML VIAL ONE (21:27)
[2017-01-11] MEDS ORDERED: Midazolam 1 MG/ML 2 ML SDV ONE (21:44)
[2017-01-11 21:50] LABS: SODIUM,NA 137 mmol/L (135-145)
[2017-01-11 21:51] LABS: CHLORIDE,CL 96 mmol/L (101-111)
--- NOTE | 2017-01-11 22:16 | PCM.PRNOTE ---
- Free Text/Narrative Note: Called in for a code blue of this hemodialysis patient. I arrived at the scene the patient was intubated and in sinus rhythm and hypertensive. Obtained ABG and started I8 G right AC IV access and hep locked it. Patient became combative 2 mg of versed given IV and was sedated with 60 mg of propofol which he tolerated very well additional 100 mg and 40 mg were given for a total of 200 mg of propofol until Med flight crew arrived and placed him on propofol drip. Crae is turned over to Fight nurse. Patient is stable HR 112, BP 150/98 , Ventilated with ambubag on 100% FiO2 SpO2 is 100%. ABG PH 7.05, PCO2 56.7, PaO2 181 HcO3 14.9. Flight crew nurse is aware of rashmi ABG result and will increase minute volume.
[2017-01-11] MEDS ORDERED: Sodium Bicarbonate 8.4% 50 MEQ/50 ML Syringe IVPUSH ONE (22:36)
[2017-01-11] MEDS ORDERED: Nitroglycerin/D5W 25 MG/250 ML BOTTLE IV SCH (22:45)
[2017-01-11 23:33] LABS: O2 DELIVERY DEVICE RESUSCITATION BAG
--- NOTE | 2017-01-12 02:57 | EDM.PDOC ---
ED HPI GENERAL MEDICAL PROBLEM - General Chief Complaint: Respiratory Problem Stated Complaint: BY AMBULANCE Time Seen by Provider: 01/11/17 21:21 Source of Information: Reports: EMS History Limitations: Reports: No Limitations, Respiratory Distress - History of Present Illness INITIAL COMMENTS - FREE TEXT/NARRATIVE: ED via [facility] with respiratory distress. Recent discharge from [facility] on 01/09. Last dialysis on 01/09. No family available for other report. Initial EMS with [facility] ambulance on arrival to patient home reported patient to have had 02 sats in 40's, patient combative with CPAP, Tier with [facility]. IV initiated. Combative on arrival , yelling that he "couldn't breath". Transfer to ED cot, became unresponsive, agonal respirations with PEA. CPR initiated. oxygenation initially with ambu. Code blue initiated. Intubated with 6.5 per Lap Checker. Rhythm check roddy PEA. Onset: Today - Related Data Allergies Allergy/AdvReac Type Severity Reaction Status Date / Time hydralazine HCl Allergy Cannot Verified 12/15/16 04:10 [From Apresoline] Remember apricots Allergy Swelling Uncoded 12/15/16 04:10 onions Allergy Cannot Uncoded 12/15/16 04:10 Remember Home Meds: Home Meds Clopidogrel Bisulfate [Clopidogrel] 1 tab PO DAILY 12/16/15 [History] Furosemide [Furosemide] 1 tab PO DAILY 12/16/15 [History] Metolazone [Zaroxolyn] 1 tab PO DAILY 12/16/15 [History] Pantoprazole Sodium [Pantoprazole Sodium] 1 tab PO BIDAC 12/16/15 [History] Pravastatin Sodium [Pravastatin Sodium] 1 tab PO BEDTIME 12/16/15 [History] glipiZIDE [Glipizide] 1 tab PO QAM 12/16/15 [History] Acetaminophen [Tylenol Extra Strength] 500 mg PO Q6H PRN 12/01/16 [History] Aspirin [Halfprin] 81 mg PO BRK 12/01/16 [History] Calcium Acetate [Calcium Acetate] 2 tab PO TIDAC 12/01/16 [History] Carvedilol [Carvedilol] 25 mg PO BID 12/01/16 [History] Gabapentin [Neurontin] 100 mg PO BEDTIME 12/01/16 [History] Parenteral Amino Acid 20% No.1 [Prosol] 1 dose ASDIRECTED 12/01/16 [History] Sevelamer Carbonate [Renvela] 3 tab PO TIDAC 12/01/16 [History] amLODIPine Besylate [Amlodipine Besylate] 10 mg PO DAILY 12/01/16 [History] Isosorbide Mononitrate [Isosorbide Mononitrate ER] 1 tab PO DAILY 01/05/17 [ History] Lactulose [Chronulac] 30 ml PO ASDIRECTED PRN 01/05/17 [History] Levofloxacin 1 tab PO ASDIRECTED 01/05/17 [History] Losartan [Cozaar] 1 tab PO DAILY 01/05/17 [History] Past Medical History HEENT History: Reports: Impaired Vision Cardiovascular History: Reports: Hypertension Respiratory History: Reports: SOB Gastrointestinal History: Reports: GERD Genitourinary History: Reports: Dialysis, Peritoneal Musculoskeletal History: Reports: Fracture Neurological History: Reports: None Psychiatric History: Reports: Addiction Endocrine/Metabolic History: Reports: Diabetes, Type II Hematologic History: Reports: None Oncologic (Cancer) History: Reports: Other (See Below) Other Oncologic History: stomach Social & Family History - Family History Family Medical History: Noncontributory - Tobacco Use Smoking Status *Q: Current Every Day Smoker Years of Tobacco use: 10 Packs/Tins Daily: 0.5 Used Tobacco, but Quit: No Second Hand Smoke Exposure: Yes - Caffeine Use Caffeine Use: Reports: Coffee - Alcohol Use Days Per Week of Alcohol Use: 2 - Recreational Drug Use Recreational Drug Use: Yes Drug Use in Last 12 Months: Yes Recreational Drug Type: Reports: Marijuana/Hashish Recreational Drug Use Frequency: Patient Refuses To Answer - Living Situation & Occupation Living situation: Reports: Single, with Family Occupation: Disabled ED ROS GENERAL - Review of Systems Review Of Systems: Unable To Obtain ED EXAM, GENERAL - Physical Exam Exam: See Below Exam Limited By: Other General Appearance: Severe Distress (Unresponsive, Code blue in progress), Thin Eye Exam: Bilateral Eye: PERRL (sluggish 2mm) Ears: Normal External Exam Nose: Normal Inspection Throat/Mouth: Normal Inspection. No: Normal Teeth (absent) Head: Atraumatic, Normocephalic Neck: Other (Yvonne sedation) Respiratory/Chest: Rhonchi. No: Normal Breath Sounds (coarse throughout) Cardiovascular: Regular Rate, Rhythm, No Edema (1+ pedal), JVD, Tachycardia, Other (AV fistula right upper arm) Peripheral Pulses: 1+: Femoral (L), Femoral (R) GI/Abdominal: Abnormal Bowel Sounds (hypoactive) Extremities: Pedal Edema Neurological: Other (Awake yelling combative on arrival, rapid deterioration to lack of pulse and respiratory effort.) Skin Exam: Cool, Diaphoretic, Pallor ED RESPIRATORY PROCEDURES - Endotracheal Intubation Time of Intubation: 21:20 ET Intubation Indication: Cardiac Arrest Preparation: Suction, Balloon Tested, BVM Set Up Airway Assessment: Profuse Secretions Pre-Oxygenation: Assisted with BVM Anesthesia Meds: Midazolam Placement: Orotracheal, Cuffed Confirmed By: CO2 Indicator, Bilateral Breath Sounds, Chest Xray Tube Secured By: Other EKG INTERPRETATION EKG Date: 01/11/17 Rhythm: Other (sinus tach) Course - Orders/Labs/Meds Orders: Active Orders 24 hr Category Date Time Status EKG Documentation Completion [RC] URGENT Care 01/11/17 21:34 Active ABG [BLOOD GAS ARTERIAL] [BG] Stat Lab 01/11/17 21:39 Received Labs: Laboratory Tests 01/11/17 01/11/17 01/11/17 Range/Units 21:25 21:25 21:25 WBC 21.8 H (5.0-10.0) 10^3/uL RBC 4.21 L (4.6-6.2) 10^6/uL Hgb 13.2 L (14.0-18.0) g/dL Hct 41.7 (40.0-54.0) % MCV 99.0 (80-100) fL MCH 31.4 (27.0-34.0) pg MCHC 31.7 L (33.0-35.0) g/dL Plt Count 300 (150-450) 10^3/uL Neut % (Auto) 45.6 (42.2-75.2) % Lymph % (Auto) 39.9 (20.5-50.1) % [place] % (Auto) 11.8 H (2-8) % Eos % (Auto) 1.9 (1.0-3.0) % Baso % (Auto) 0.8 (0.0-1.0) % Add Manual Diff Yes Neutrophils % (Manual) 52 % Band Neutrophils % 1 % Lymphocytes % (Manual) 40 % Monocytes % (Manual) 6 % Eosinophils % (Manual) 1 % Sodium 137 (135-145) mmol/L Potassium 5.6 H (3.6-5.0) mmol/L Chloride 96 L (101-111) mmol/L Carbon Dioxide 18.0 L (21.0-31.0) mmol/L Anion Gap 28.6 BUN 54 H (7-18) mg/dL Creatinine 8.7 H (0.6-1.3) mg/dL Est Cr Clr Drug Dosing TNP Estimated GFR (MDRD) 6 BUN/Creatinine Ratio 6.20 Glucose 316 H (74-105) mg/dL Calcium 8.7 (8.4-10.2) mg/dl Total Bilirubin 0.6 (0.2-1.0) mg/dL AST 46 H (10-42) IU/L ALT 26 (10-60) IU/L Alkaline Phosphatase 112 (42-121) IU/L CK-MB (CK-2) 5.30 H (0.4-4.7) ng/mL Troponin I 0.07 H* (0.00-0.02) ng/ml B-Natriuretic Peptide (0-100) pg/ml Total Protein 7.2 (6.7-8.2) g/dl Albumin 3.4 (3.2-5.5) g/dl Globulin 3.8 Albumin/Globulin Ratio 0.89 08/28/17 Range/Units 21:25 WBC (5.0-10.0) 10^3/uL RBC (4.6-6.2) 10^6/uL Hgb (14.0-18.0) g/dL Hct (40.0-54.0) % MCV (80-100) fL MCH (27.0-34.0) pg MCHC (33.0-35.0) g/dL Plt Count (150-450) 10^3/uL Neut % (Auto) (42.2-75.2) % Lymph % (Auto) (20.5-50.1) % [place] % (Auto) (2-8) % Eos % (Auto) (1.0-3.0) % Baso % (Auto) (0.0-1.0) % Add Manual Diff Neutrophils % (Manual) % Band Neutrophils % % Lymphocytes % (Manual) % Monocytes % (Manual) % Eosinophils % (Manual) % Sodium (135-145) mmol/L Potassium (3.6-5.0) mmol/L Chloride (101-111) mmol/L Carbon Dioxide (21.0-31.0) mmol/L Anion Gap BUN (7-18) mg/dL Creatinine (0.6-1.3) mg/dL Est Cr Clr Drug Dosing Estimated GFR (MDRD) BUN/Creatinine Ratio Glucose (74-105) mg/dL Calcium (8.4-10.2) mg/dl Total Bilirubin (0.2-1.0) mg/dL AST (10-42) IU/L ALT (10-60) IU/L Alkaline Phosphatase (42-121) IU/L CK-MB (CK-2) (0.4-4.7) ng/mL Troponin I (0.00-0.02) ng/ml B-Natriuretic Peptide 2980 H (0-100) pg/ml Total Protein (6.7-8.2) g/dl Albumin (3.2-5.5) g/dl Globulin Albumin/Globulin Ratio Meds: Medications Discontinued Medications Generic Name Dose Route Start Last Admin Trade Name Freq PRN Reason Stop Dose Admin Furosemide Confirm 01/11/17 21:27 Lasix Administered 01/11/17 21:28 Dose 40 mg .ROUTE .STK-MED ONE Nitroglycerin/Dextrose 25 mg in 250 mls @ 6 mls/hr 01/11/17 22:45 01/11/17 22 :41 Nitroglycerin 25 Mg/D5w 250 Ml IV 10 mcg/min TITRATE YAYA 6 mls/hr Protocol Administration 10 MCG/MIN Midazolam HCl Confirm 01/11/17 21:44 Versed 1 Mg/Ml Administered 01/11/17 21:45 Dose 2 mg .ROUTE .STK-MED ONE Sodium Bicarbonate 50 meq 01/11/17 22:36 01/11/17 22:37 Sodium Bicarbonate 8.4% IVPUSH 01/11/17 22:37 50 meq ONETIME ONE Administration - Radiology Interpretation Free Text/Narrative:: CXR ET at 7mcm above patrick bilateral opacities , pulmonary edema - Re-Assessments/Exams Free Text/Narrative Re-Assessment/Exam: 2124 pulse check weak. No respiratory effort. 2127 E-care. 2129 femoral pulse present, agonal breathing, shallow, continued respiratory assist. 2131 OG placed, thick light brown pick return [address] Sue accepting off patient at [address] [facility] notified. [facility] here, Care transfer, Update with Dr. Rodriguez with available labs and updated vitals. Recommend initiation of Nitro drip and 1 amp sodium bicarb. Sister Kristy notified of patient status by RN. Sister request patient to be full code. Patient critical. Continued respiratory assist. Pupils equal round. Sedate to maintain airway as biting on tube when arousing. Departure - Departure Time of Disposition: 22:55 Disposition: DC/Tfer to Acute Hospital 02 Condition: Critical Clinical Impression: Cardiac arrest due to respiratory disorder, Dialysis patient - Discharge Information Referrals: PCP,Unobtain [Primary Care Provider] - Forms: ED Department Discharge - My Orders Last 24 Hours: My Active Orders 01/11/17 21:34 EKG Documentation Completion [RC] URGENT 01/11/17 21:39 ABG [BLOOD GAS ARTERIAL] [BG] Stat - Assessment/Plan Last 24 Hours: My Active Orders 01/11/17 21:34 EKG Documentation Completion [RC] URGENT 01/11/17 21:39 ABG [BLOOD GAS ARTERIAL] [BG] Stat
[2017-01-12 09:07] LABS: PCO2 ARTERIAL 57 mmHg (35-45); PO2 ARTERIAL 181 mmHg (70-100)
[2017-01-12 09:08] LABS: BASE EXCESS ARTERIAL 0 mmol/L ((-2)-(+3)); BICARBONATE,ARTERIAL 14.9 mmol/L (22-26); O2 FLOW RATE 15; O2 SATURATION ARTERIAL 0 % (95-100)
--- NOTE | 2017-01-13 14:58 | EKG ---
01/11/2017- SAMANTHA STEVENS - EKG, per my reading, shows a sinus tachycardia at the rate of 120s. [facility] /[id number]
== END 2017-01-11 23:15 ==
LOC: DL.ED 21:21
DX: I46.9 Cardiac arrest, cause unspecified (principal); Z76.0 Encounter for issue of repeat prescription; I10 Essential (primary) hypertension; K21.9 Gastro-esophageal reflux disease without esophagitis; E11.9 Type 2 diabetes mellitus without complications; F17.210 Nicotine dependence, cigarettes, uncomplicated; Z79.899 Other long term (current) drug therapy; Z79.02 Long term (current) use of antithrombotics/antiplatelets; Z88.8 Allergy status to other drugs, medicaments and biological substances; Z91.018 Allergy to other foods
CPT/HCPCS: 31500; 36415; 36600; 71010; 80053; 82553; 82803; 83880; 84484; 85025; 92950; 93005; 93010; 96361; 96374; 96375; 99285; J1940; J2250; J2704